=== PATIENT | female | born 1985 | race Caucasian/White ===

== ENCOUNTER 2020-06-14 21:49 | Emergency (ER) | payer SELFPAY ==
--- NOTE | 2020-06-15 01:25 | ER ---
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 Pain and swelling on R ca1 ankle. Pain on L knee. Coronavirus screen: Client denies travel out of the [place] in the last 14 days. At this time, the client does not indicate any symptoms associated with coronavirus-19. Ebola Screen: Patient negative for fever greater than or equal to 101.5 degrees Fahrenheit, and additional compatible Ebola Virus Disease symptoms Patient denies exposure to infectious person. Patient denies travel to an Ebola-affected area in the 21 days before illness onset. No symptoms or risks identified at this time. Initial Sepsis Screen: Does the patient meet any 2 criteria? No. Patient's initial sepsis screen is negative. Does the patient have a suspected source of infection? No. Patient's initial sepsis screen is negative. Risk Assessment: Do you want to hurt yourself or someone else? Patient reports no desire to harm self or others. Onset of symptoms was June 14, 2020. 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 - Social history:: Smoking status: Patient denies any tobacco usage or history of. Screenin:38 Abuse screen: Denies threats or abuse. Denies injuries from another. Nutritional zb screening: No deficits noted. Tuberculosis screening: No symptoms or risk factors identified. Fall Risk None identified. Assessment: 23:39 Reassessment: ECP at bedside. zb 23:42 General: Appears in no apparent distress. uncomfortable, Behavior is calm, cooperative, zb appropriate for age. Pain: Complains of pain in right foot and left knee Pain currently is 9 out of 10 on a pain scale. Quality of pain is described as tender, throbbing, Pain began 4 hours ago. Alleviated by nothing. Aggravated by increased activity, weight bearing, Noted to be grimacing. Neuro: Level of Consciousness is awake, alert, obeys commands, Oriented to person, place, time, situation. Cardiovascular: Patient's skin is warm and dry. Cardiovascular: Edema is 1+ to left foot and right foot. Respiratory: Airway is patent Respiratory effort is even, unlabored, Respiratory pattern is regular, symmetrical. GI: Abdomen is obese. Derm: Skin is intact, is healthy with good turgor, Skin is dry, Skin is normal, Skin temperature is warm Bruising that is bright red, on left knee. Musculoskeletal: Swelling present in right foot. 06/15 00:06 Reassessment: x-ray at bedside. zb Vital Signs: 06/14 22:05 BP 155 / 85; Pulse 92; Resp 16 S; Temp 97.2(TE); Pulse Ox 99% on R/A; Weight 156.49 kg ca1 (R); Height 5 ft. 3 in. (160.02 cm) (R); Pain 9/10; 22:05 Body Mass Index 61.11 (156.49 kg, 160.02 cm) ca1 ED Course: 21:58 Patient arrived in ED. am4 22:07 Triage completed. ca1 22:08 Arm band placed on right wrist. ca1 23:30 Mitesh Alexander PA is PHCP. jmm 23:30 Jet Staley MD is Attending Physician. jmm 23:37 Suzie Peralta, ETELVINA is Primary Nurse. zb 23:38 Patient has correct armband on for positive identification. Placed in gown. Bed in low zb position. Call light in reach. Pulse ox on. NIBP on. Door closed. Noise minimized. 06/15 00:50 Ankle Right 3 View XRAY In Process Unspecified. EDMS 00:55 Foot Right 3 View XRAY In Process Unspecified. EDMS 01:24 Tommy Kirkland MD is Referral Physician. jmm 02:02 3D boot applied to right foot. em 02:03 No provider procedures requiring assistance completed. Patient did not have IV access em during this emergency room visit. Administered Medications: No medications were administered Outcome: :24 Discharge ordered by MD. doan 02:03 Discharged to home via wheelchair. em 02:03 Condition: stable 02:03 Discharge instructions given to patient, Instructed on discharge instructions, follow up and referral plans. Demonstrated understanding of instructions, follow-up care. 02:03 Patient left the ED. em Signatures: Dispatcher [employer] Mitesh Lott PA PA jmm Munoz, Edgar RN Tanya Feldman RN Suzie Garcia RN RN zb Martinez, Ashley [facility]
--- NOTE | 2020-06-15 01:25 | EDPHYS ---
Physician Documentation [facility] Name: Gelacio Silva Age: 35 yrs Sex: Female : 1985 Arrival Date: 06/14/2020 Time: 21:58 Bed 26 Private MD: ED Physician Jet Staley HPI: 06/14 23:40 This 35 yrs old Female presents to ER via Ambulatory with complaints of Fall jmm Injury. 23:40 The patient presents with an injury, a penetrating injury. Onset: The symptoms/episode jmm began/occurred acutely, just prior to arrival. Modifying factors: The symptoms are alleviated by nothing. the symptoms are aggravated by weight bearing. Associated signs and symptoms: Pertinent negatives head injury. This is a 35 year old female with no chronic medical conditions that presents to the ED with complaints of mainly right fot and ankle pain. patient states she tripped on cement and fell. Denies hitting her head. Abrasions noted to the left knee as well. 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 - Social history:: Smoking status: Patient denies any tobacco usage or history of. ROS: 23:40 Constitutional: Negative for fever, chills, and weight loss, Cardiovascular: Negative jmm for chest pain, palpitations, and edema, Respiratory: Negative for shortness of breath, cough, wheezing, and pleuritic chest pain. 23:40 MS/extremity: Positive for injury or acute deformity, pain. 23:40 All other systems are negative. Exam: 23:40 Constitutional: This is a well developed, well nourished patient who is awake, alert, jmm and in no acute distress. Head/Face: atraumatic. Eyes: EOMI, no conjunctival erythema appreciated ENT: Moist Mucus Membranes Neck: Trachea midline, Supple Chest/axilla: Normal chest wall appearance and motion. Cardiovascular: Regular rate and rhythm. No edema appreciated Respiratory: Normal respirations, no respiratory distress appreciated Abdomen/GI: Non distended, soft Back: Normal ROM Skin: General appearance color normal 23:40 Musculoskeletal/extremity: right foot ttp at the dorsum, compartments are soft, NVI. 23:40 Skin: Appearance: Color: normal in color. 23:40 Neuro: Orientation: is normal, Mentation: is normal, Memory: is normal. 23:40 Psych: Behavior/mood is pleasant, cooperative. Vital Signs: 22:05 BP 155 / 85; Pulse 92; Resp 16 S; Temp 97.2(TE); Pulse Ox 99% on R/A; Weight 156.49 kg ca1 (R); Height 5 ft. 3 in. (160.02 cm) (R); Pain 9/10; 22:05 Body Mass Index 61.11 (156.49 kg, 160.02 cm) ca1 MDM: 23:40 Patient medically screened. [facility] 06/15 01:23 Data reviewed: vital signs, nurses notes. Counseling: I had a detailed discussion with franki the patient and/or guardian regarding: the historical points, exam findings, and any diagnostic results supporting the discharge/admit diagnosis, radiology results, the need for outpatient follow up, to return to the emergency department if symptoms worsen or persist or if there are any questions or concerns that arise at home. ED course: Patient advised to follow up with ortho for further evaluation. patient understood and agrees with the plan of care. . 04 23:40 Order name: Foot Right 3 View XRAY [facility] 06/14 23:40 Order name: Ankle Right 3 View XRAY [facility] 06/15 01:21 Order name: Misc. Order: orthoboot; Complete Time: 02:02 [facility] Administered Medications: No medications were administered Disposition: 08:20 Co-signature as Attending Physician, Jet Staley MD. dixie Disposition: 06/15/20 01:24 Discharged to Home. Impression: Unspecified sprain of right foot. - Condition is Stable. - Discharge Instructions: Foot Sprain. - Medication Reconciliation Form, Thank You Letter, Antibiotic Education, Prescription Opioid Use, Work release form form. - Follow up: Tommy Kirkland MD; When: 2 - 3 days; Reason: Recheck today's complaints, Continuance of care, Re-evaluation by your physician. Signatures: Dispatcher [employer] Jet Medina MD MD pkl Mickail, Joel, PA PA jmm Munoz, Edgar RN Tanya Feldman RN RN [facility] Corrections: (The following items were deleted from the chart) 02:03 01:24 06/15/2020 01:24 Discharged to Home. Impression: Unspecified sprain of right em foot. Condition is Stable. Forms are Medication Reconciliation Form, Thank You Letter, Antibiotic Education, Prescription Opioid Use. Follow up: Tommy Kirkland; When: 2 - 3 days; Reason: Recheck today's complaints, Continuance of care, Re-evaluation by your physician. franki
--- NOTE | 2020-06-15 10:53 | RAD REPORT ---
EXAM DESCRIPTION: RAD - Ankle Right 3 View - 06/15/2020 12:50 am CLINICAL HISTORY: Fall. COMPARISON: None. TECHNIQUE: Three views of the right ankle were obtained: AP, oblique, and lateral radiographs. FINDINGS: No acute osseous abnormality. No ankle mortise widening. The talar dome appears intact. Mi ld soft tissue swelling about the ankle. IMPRESSION: No acute osseous abnormality. Due to temporary technical issues with the PACS/Fluency reporting system, reports are being signed by the in house radiologist without review as a courtesy to ensure prompt reporting. The interpreting r adiologist is fully responsible for the content of the report.
--- NOTE | 2020-06-15 10:56 | RAD REPORT ---
EXAM DESCRIPTION: RAD - Foot Right 3 View - 06/15/2020 12:55 am CLINICAL HISTORY: Fall , pain and swelling, trip and fall COMPARISON: None. TECHNIQUE: Right foot 3 views FINDINGS: No fracture or dislocation. No significant sclerotic/lytic bone lesion. Joint spaces unremarkable. Mild soft tissue swelling along dorsal aspect of proximal right foot. IMPRESSION: No right foot fracture. Electronically signed by: Willie Levi MD 06/15/2020 1:12 AM CDT Due to temporary technical issues with the PACS/Fluency reporting system, reports are being signed by the in house radiologist without review as a courtesy to ensure prompt reporting. The interpreting r adiologist is fully responsible for the content of the report.
[2020-06-15 16:59] VITALS: BP 155/85; TEMP 97.2; O2SAT 99
== END 2020-06-15 02:03 | disposition home or self-care (01) ==
LOC: ER 21:49
DX: S93.601A Unspecified sprain of right foot, initial encounter (principal); W01.0XXA Fall on same level from slipping, tripping and stumbling without subsequent striking against object, initial encounter; Y93.01 Activity, walking, marching and hiking; Y92.9 Unspecified place or not applicable
CPT/HCPCS: 99283

== ENCOUNTER 2021-05-04 00:25 | Emergency (ER) | payer SELFPAY ==
[2021-05-04 01:24] LABS: Absolute Lymphocytes (CBC) 2.9 K/uL (0.7-4.9); Hematocrit 37.8 % (36.0-45.0); MPV 7.2 fL (7.6-11.3)
[2021-05-04 01:27] LABS: Protime INR 1.01
[2021-05-04 01:43] LABS: Urine Blood 2+ (Negative); Urine Glucose Negative (Negative); Urine Protein Negative (Negative); Urine Specific Gravity 1.025 (1.005-1.030)
[2021-05-04 02:03] LABS: Urine Specific Gravity/Preg 1.025 (1.005-1.030)
[2021-05-04 02:11] LABS: Urine Amorphous Sediment 3+ /HPF (NONE SEEN); Urine Bacteria >50 /HPF (<20); Urine Mucus 2+ /HPF (NONE SEEN)
[2021-05-04] MEDS ORDERED: NA CHLORIDE 0.9% 1,000 ML ONE (02:13)
[2021-05-04] MEDS ORDERED: KETOROLAC 30 MG/ML INJ ONE (02:13)
[2021-05-04] MEDS ORDERED: HYDROCODONE/APAP 10/325 TAB ONE (03:31)
--- NOTE | 2021-05-04 03:58 | EDPHYS ---
Physician Documentation [facility] Name: Gelacio Silva Age: 36 yrs Sex: Female : 1985 Arrival Date: 05/04/2021 Time: 00:26 Bed 5 Private MD: ED Physician Artemio Barber HPI: 05/04 01:55 This 36 yrs old Female presents to ER via Ambulatory with complaints of Vaginal cp Bleeding, VAGINAL BLOOD CLOTS. 01:55 The patient presents with vaginal bleeding that is heavy, with clots. Onset: The cp symptoms/episode began/occurred gradually, yesterday, about 1600. Associated signs and symptoms: Pertinent positives: dizziness, Pertinent negatives: dysuria, fever. Severity of symptoms: in the emergency department the symptoms are unchanged, despite home interventions. Patient reports LMP end of January to early February. Patient reports history of PCOS, irregular menses in the past. Not currently taking and control. IMPRESS ASSOCIATE: 00:57 LMP N/A - Irregular menses vc1 Historical: - Allergies: 00:51 Paper tape; vc1 00:55 Surgical Steel; vc1 - Home Meds: 00:51 Lamictal 200 mg Oral tab 1 tab 2 times per day [Active]; BuSpar 30 mg Oral tab 1 tab 2 vc1 times per day [Active]; Prozac 20 mg Oral cap 1 cap once daily [Active]; - PMHx: 00:51 Anxiety; Bipolar disorder; PTSD; Endometriosis of vagina; PCOS; Irritable bowel vc1 syndrome; Hypertensive disorder; GERD; Arthritis; Degenerative disc; Scoliosis; Enclosing Spondylosis; - PSHx: 00:55 Back Surgery; vc1 00:56 Cholecystectomy; vc1 - Immunization history:: Adult Immunizations up to date, Client reports receiving the 2nd dose of the Covid vaccine, Flu vaccine is not up to date. - Social history:: Smoking status: Patient/guardian denies using tobacco, the patient reports quitting approximately 2010 years ago. ROS: 02:00 Constitutional: Negative for body aches, chills, fever, poor PO intake. cp 02:00 Abdomen/GI: Positive for abdominal cramps, of the right lower quadrant and left lower cp quadrant, Negative for nausea, vomiting, and diarrhea. 02:00 Eyes: Negative for injury, pain, redness, and discharge. cp 02:00 ENT: Negative for ear pain, sore throat, difficulty swallowing, difficulty handling secretions. 02:00 Cardiovascular: Negative for chest pain. 02:00 Respiratory: Negative for cough, shortness of breath, wheezing. 02:00 Neuro: Positive for dizziness, Negative for altered mental status, loss of consciousness, numbness, syncope, weakness. 02:00 All other systems are negative. Exam: 02:05 Constitutional: The patient appears in no acute distress, alert, awake, non-toxic, well cp developed, well nourished. 02:05 Head/Face: Normocephalic, atraumatic. cp 02:05 Eyes: Periorbital structures: appear normal, Conjunctiva: normal, no exudate, no injection, Sclera: no appreciated abnormality, Lids and lashes: appear normal, bilaterally. 02:05 ENT: External ear(s): are unremarkable, Nose: is normal, Mouth: Lips: moist, Oral mucosa: moist, Posterior pharynx: Airway: no evidence of obstruction, patent. 02:05 Neck: ROM/movement: is normal, is supple, without pain, no range of motions limitations. 02:05 Chest/axilla: Inspection: normal. 02:05 Cardiovascular: Rate: normal, Rhythm: regular. 02:05 Respiratory: the patient does not display signs of respiratory distress, Respirations: normal, no use of accessory muscles, no retractions, labored breathing, is not present, Breath sounds: are clear throughout, no decreased breath sounds, no stridor, no wheezing. 02:05 Abdomen/GI: Inspection: obese Bowel sounds: active, all quadrants, Palpation: soft, in all quadrants, mild abdominal tenderness, in the right lower quadrant and left lower quadrant, rebound tenderness, is not appreciated, involuntary guarding, is not appreciated. 02:05 : Pelvic Exam: Speculum exam: moderate bleeding, blood clots in vaginal vault, os that is closed, no tissue in cervix is seen, no tissue in vagina is seen, the nurse was present for the exam. Vital Signs: 00:45 BP 178 / 108; Pulse 93; Resp 18; Temp 97.8; Pulse Ox 99% ; Weight 145.15 kg; Height 5 vc1 ft. 3 in. (160.02 cm); Pain 4/10; 01:04 BP 166 / 104 Supine; Pulse 92; Pulse Ox 100% on R/A; tw5 01:04 BP 186 / 119 Sitting; Pulse 89; Resp 18; Pulse Ox 99% ; tw5 01:04 BP 194 / 118 Standing; Pulse 102; Resp 20; Pulse Ox 100% on R/A; tw5 01:47 BP 173 / 95; Pulse 81; Resp 16; Pulse Ox 99% on R/A; tw5 02:40 BP 161 / 107; Pulse 82; Resp 16; Pulse Ox 100% on R/A; Pain 3/10; dolores 02:40 Pain 3/10; dolores 03:18 BP 163 / 102; Pulse 82; Resp 16; Pulse Ox 98% on R/A; Pain 2/10; dolores 00:45 Body Mass Index 56.68 (145.15 kg, 160.02 cm) vc1 MDM: 01:12 Patient medically screened. cp 02:00 Differential diagnosis: endometriosis, uterine fibroids, urinary tract infection, cp vaginosis, anemia. 03:56 Data reviewed: vital signs, nurses notes, lab test result(s), radiologic studies, rn ultrasound, and as a result, I will discharge patient. Counseling: I had a detailed discussion with the patient and/or guardian regarding: the historical points, exam findings, and any diagnostic results supporting the discharge/admit diagnosis, lab results, radiology results, the need for outpatient follow up, to return to the emergency department if symptoms worsen or persist or if there are any questions or concerns that arise at home. Special discussion: I discussed with the patient/guardian in detail that at this point there is no indication for admission to the hospital. It is understood, however, that if the symptoms persist or worsen the patient needs to return immediately for re-evaluation. Based on the history and exam findings, there is no indication for further emergent testing or inpatient evaluation. I discussed with the patient/guardian the need to see the OB Gyne specialist for further evaluation of the symptoms. 05/04 01: Order name: Basic Metabolic Panel; Complete Time: :48 cp 05/04 01:01 Order name: CBC with Diff; Complete Time: :48 cp 05/04 01:02 Order name: PT-INR; Complete Time: :48 cp 05/04 01:02 Order name: Ptt, Activated; Complete Time: :48 cp 05/04 01:02 Order name: Urine Microscopic Only; Complete Time: 03:26 cp 05/04 01:43 Order name: Urine Dipstick-Ancillary; Complete Time: 01:48 EDMS 05/04 01:01 Order name: IV Saline Lock; Complete Time: 01:32 cp 05/04 01:01 Order name: Labs collected and sent; Complete Time: 01:44 cp 05/04 01:44 Order name: Urine --Ancillary (enter results); Complete Time: 03:26 as6 05/04 01:50 Order name: Transvaginal Study (probe) cp 05/04 02:12 Order name: Urine Culture EDMS 05/04 01:01 Order name: NPO; Complete Time: 01:09 cp 05/04 01:01 Order name: Urine Dipstick-Ancillary (obtain specimen); Complete Time: 01:44 cp 05/04 01:01 Order name: Urine Test (obtain specimen); Complete Time: 01:44 cp 05/04 01:01 Order name: Orthostatics; Complete Time: 01:09 cp 05/04 01:02 Order name: Cath; Complete Time: 01:32 cp Administered Medications: 02:14 Drug: Ketorolac 30 mg Route: IVP; Site: right antecubital; dolores 02:40 Follow up: Pain 3/10 Adult; Response: Pain is decreased dolores 02:39 Drug: NS 0.9% 1000 ml Route: IV; Rate: 1 bolus; Site: right antecubital; as6 04:17 Follow up: Response: No adverse reaction; IV Status: Completed infusion; IV Intake: as6 1000ml 04:02 Not Given (Patient Refused): Warden (HYDROcodone-acetaminophen) 10 mg-325 mg 1 tabs PO dolores once; RASS on ADMIN: Combtv4, Very Agttd3, Agttd2, Rstlss1, AlertClm0, Drwsy-1, Lt Sdtn-2, Mod Sdtn-3, Dp Sdtn-4, UnArsble-5 Disposition: 05:16 Co-signature as Attending Physician, Artemio Barber MD I agree with the assessment and rn plan of care. Attestation: The patient's history, exam findings, diagnostics, and a summary of any interventions or procedures was reviewed in detail with Juan JIMENEZ. Disposition Summary: 05/04/21 03:57 Discharge Ordered Location: Home rn Problem: new rn Symptoms: have improved rn Condition: Stable rn Diagnosis - Abnormal uterine and vaginal bleeding, unspecified rn Followup: cp - With: - When: 1 week - Reason: Recheck today's complaints Discharge Instructions: - Discharge Summary Sheet cp - Abnormal Uterine Bleeding cp Forms: - Medication Reconciliation Form rn - Thank You Letter rn - Antibiotic cook morning - Prescription Opioid Use rn Prescriptions: - medroxyprogesterone 10 mg Oral tablet - take 1 tablet by ORAL route once daily for 10 days for 10 days; 10 tablet; cp Refills: 0, Product Selection Permitted Signatures: Dispatcher [employer] EDMS Artemio Barber MD MD rn Page, Corey, PA PA cp Guido Chapman RN RN as6 Venus Beard RN RN Yanna Charles, RN RN vc1
--- NOTE | 2021-05-04 03:58 | ER ---
Nurse's Notes [facility] Name: Gelacio Silva Age: 36 yrs Sex: Female : 1985 Arrival Date: 05/04/2021 Time: 00:26 Bed 5 Private MD: Diagnosis: Abnormal uterine and vaginal bleeding, unspecified Presentation: 05/04 00:45 Chief complaint: Patient states: I have gone through 10 large pads in the last four vc1 hours. I am passing giants clumps of clots. Coronavirus screen: Vaccine status: Patient reports receiving the 2nd dose of the covid vaccine. Moderna At this time, the client does not indicate any symptoms associated with coronavirus-19. Ebola Screen: No symptoms or risks identified at this time. Initial Sepsis Screen: Does the patient meet any 2 criteria? HR > 90 bpm. No. Patient's initial sepsis screen is negative. Does the patient have a suspected source of infection? No. Patient's initial sepsis screen is negative. Risk Assessment: Do you want to hurt yourself or someone else? Patient reports no desire to harm self or others. Onset of symptoms was May 03, 2021. 00:45 Method Of Arrival: Ambulatory vc1 00:45 Acuity: NASIR 3 vc1 Triage Assessment: 00:57 General: Appears in no apparent distress. uncomfortable, Behavior is calm, cooperative, vc1 appropriate for age. Pain: Complains of pain in abdomen. : Reports vaginal bleeding that is bright red, with clots, heavy flow. 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 N/A - Irregular menses vc1 Historical: - Allergies: 00:51 Paper tape; vc1 00:55 Surgical Steel; vc1 - Home Meds: 00:51 Lamictal 200 mg Oral tab 1 tab 2 times per day [Active]; BuSpar 30 mg Oral tab 1 tab 2 vc1 times per day [Active]; Prozac 20 mg Oral cap 1 cap once daily [Active]; - PMHx: 00:51 Anxiety; Bipolar disorder; PTSD; Endometriosis of vagina; PCOS; Irritable bowel vc1 syndrome; Hypertensive disorder; GERD; Arthritis; Degenerative disc; Scoliosis; Enclosing Spondylosis; - PSHx: 00:55 Back Surgery; vc1 00:56 Cholecystectomy; vc1 - Immunization history:: Adult Immunizations up to date, Client reports receiving the 2nd dose of the Covid vaccine, Flu vaccine is not up to date. - Social history:: Smoking status: Patient/guardian denies using tobacco, the patient reports quitting approximately 2010 years ago. Screenin:58 Abuse screen: Denies threats or abuse. Nutritional screening: No deficits noted. vc1 Tuberculosis screening: No symptoms or risk factors identified. Fall Risk None identified. Assessment: 01:01 General: Reports "I was bleeding all over the floor. It looked like something from tw5 forensics.". Pain: Pain currently is 4 out of 10 on a pain scale. Quality of pain is described as crampy. Neuro: Level of Consciousness is awake, alert, obeys commands. Respiratory: Airway is patent Trachea midline Respiratory effort is even, unlabored. : Reports cramping, lower back vaginal bleeding that is with clots, heavy flow "Dark, Dark red, huge clumps, like bowel movement size clumps.". Derm: Skin is intact, is healthy with good turgor. 01:32 : bloody. tw5 02:09 General: Active Circle tech is at bedside performing the study. The pt is tolerating it very well. dolores She is pleasant and talkative. . 04:02 General: Although the pt called me into the room and c/o pain 08/17, she refused the dolores Glide when I brought it to her. informed. She has been dc'd, but environmental services are completing the floors and we can not retrieve them. . Vital Signs: 00:45 BP 178 / 108; Pulse 93; Resp 18; Temp 97.8; Pulse Ox 99% ; Weight 145.15 kg; Height 5 vc1 ft. 3 in. (160.02 cm); Pain 410; 01:04 BP 166 / 104 Supine; Pulse 92; Pulse Ox 100% on R/A; tw5 01:04 BP 186 / 119 Sitting; Pulse 89; Resp 18; Pulse Ox 99% ; tw5 01:04 BP 194 / 118 Standing; Pulse 102; Resp 20; Pulse Ox 100% on R/A; tw5 01:47 BP 173 / 95; Pulse 81; Resp 16; Pulse Ox 99% on R/A; tw5 02:40 BP 161 / 107; Pulse 82; Resp 16; Pulse Ox 100% on R/A; Pain 3/10; dolores 02:40 Pain 3/10; dolores 03:18 BP 163 / 102; Pulse 82; Resp 16; Pulse Ox 98% on R/A; Pain 2/10; dolores 00:45 Body Mass Index 56.68 (145.15 kg, 160.02 cm) vc1 ED Course: 00:26 Patient arrived in ED. ja2 00:51 Triage completed. vc1 00:57 Arm band placed on right wrist. vc1 00:58 Patient has correct armband on for positive identification. vc1 01:00 Juan Reyna PA is PHCP. cp 01:00 Artemio Barber MD is Attending Physician. cp 01:00 Mirela Rivas is Primary Nurse. tw5 01:01 Pulse ox on. NIBP on. Door closed. Noise minimized. Moved to private room. Warm blanket tw5 given. Verbal reassurance given. 01:32 Initial lab(s) drawn, by ED staff, sent to lab. Urine collected: straight cath tw5 specimen, cloudy, Amount Returned: 100mL. Inserted saline lock: 20 gauge in right antecubital area, using aseptic technique. Blood collected. 01:48 Assist provider with pelvic exam: Set up pelvic tray. Performed by Juan bernal Patient tolerated well. 02:33 Transvaginal Study (probe) In Process Unspecified. EDMS 03:57 Lanre Ward MD is Referral Physician. rn 04:17 IV discontinued, intact, bleeding controlled, No redness/swelling at site. Pressure as6 dressing applied. Administered Medications: 02:14 Drug: Ketorolac 30 mg Route: IVP; Site: right antecubital; dolores 02:40 Follow up: Pain 3/10 Adult; Response: Pain is decreased dolores 02:39 Drug: NS 0.9% 1000 ml Route: IV; Rate: 1 bolus; Site: right antecubital; as6 04:17 Follow up: Response: No adverse reaction; IV Status: Completed infusion; IV Intake: as6 1000ml 04:02 Not Given (Patient Refused): Glide (HYDROcodone-acetaminophen) 10 mg-325 mg 1 tabs PO dolores once; RASS on ADMIN: Combtv4, Very Agttd3, Agttd2, Rstlss1, AlertClm0, Drwsy-1, Lt Sdtn-2, Mod Sdtn-3, Dp Sdtn-4, UnArsble-5 Intake: 04:17 IV: 1000ml; Total: 1000ml. as6 Outcome: 01:49 Condition: stable dolores 03:57 Discharge ordered by . rn 04:17 Discharged to home ambulatory. as6 04:17 Discharge instructions given to patient, Instructed on discharge instructions, follow up and referral plans. medication usage, Demonstrated understanding of instructions, follow-up care, medications, Prescriptions given X 1. 04:17 Patient left the ED. as6 Signatures: Dispatcher [employer] EDMS Artemio Barber MD MD rn Juan Reyna PA PA cp Alexander, Jessica ja2 Wood, Tiffany tw5 Guido Chapman RN RN as6 Venus Beard, RN Yanna Carr, RN RN vc1
[2021-05-04 04:29] VITALS: TEMP 97.8
[2021-05-04 04:36] VITALS: BP 163/102; O2SAT 98
--- NOTE | 2021-05-04 11:30 | RAD REPORT ---
EXAM DESCRIPTION: US - Transvaginal Study Probe - 05/04/2021 3:10 am CLINICAL HISTORY: The patient is 36 years old and is Female; VAGINAL BLEEDING TECHNIQUE: Real-time transvaginal pelvic ultrasound with image documentation. Transvaginal imaging was used for better evaluation of the endometrium and adnexa. COMPARISON: No relevant prior studies available. FINDINGS: UTERUS/CERVIX: The uterus measures 8.3 x 4.7 x 4.6 cm. The endometrium is thickened perez uring 1.4 cm. Several nabothian cysts are present. No myometrial mass. RIGHT OVARY: The right ovary measures 3.9 x 2.8 x 3.8 cm. Normal arterial and venous color Doppl er and spectral waveform is present. Normal blood flow. LEFT OVARY: The left ovary measures 2.5 x 1.1 x 1.9 cm. Normal arterial and venous color Doppler and spectral waveform is present. Normal blood flow. FREE FLUID: No free fluid. BLADDER: Empty bladder which cannot be evaluated with this probe. IMPRESSION: Thickened endometrium which may be secondary to the phase of menstrual cycle. Electronically signed by: Isabel Pan MD 05/04/2021 3:02 AM [employer]ITCH[employer] BREAKER Due to temporary technical issues with the PACS/Fluency reporting system, reports are being signed by the in house radiologist without review as a courtesy to ensure prompt reporting. The interpreting r adiologist is fully responsible for the content of the report.
== END 2021-05-04 04:17 | disposition home or self-care (01) ==
LOC: ER 00:25
DX: N93.9 Abnormal uterine and vaginal bleeding, unspecified (principal); F31.9 Bipolar disorder, unspecified; I10 Essential (primary) hypertension; Z91.048 Other nonmedicinal substance allergy status
CPT/HCPCS: 36415; 76830; 80048; 81003; 81015; 81025; 85025; 85610; 85730; 87086; 87088; 96361; 96374; 99284; J7030

== ENCOUNTER 2021-08-20 00:34 | Emergency (ER) | payer SELFPAY ==
--- NOTE | 2021-08-20 02:12 | ER ---
Nurse's Notes [facility] Name: Gelacio Silva Age: 36 yrs Sex: Female : 1985 Arrival Date: 08/20/2021 Time: 00:38 Bed 11 Private MD: Diagnosis: Presentation: 08/20 00:55 Chief complaint: Patient states: Something bit/ or stung me on the left foot, I noticed jb4 my foot swelling and itching. I took 2 Benadryl about 45minutes to and hour ago. Coronavirus screen: At this time, the client does not indicate any symptoms associated with coronavirus-19. Ebola Screen: No symptoms or risks identified at this time. Onset of symptoms was August 20, 2021. 00:55 Method Of Arrival: Ambulatory jb4 00:55 Acuity: NASIR 4 jb4 00:56 Transition of care: patient was not received from another setting of care. jb4 00:57 Initial Sepsis Screen: Does the patient meet any 2 criteria? No. Patient's initial jb4 sepsis screen is negative. Does the patient have a suspected source of infection? No. Patient's initial sepsis screen is negative. Risk Assessment: Do you want to hurt yourself or someone else? Patient reports no desire to harm self or others. Triage Assessment: 00:57 Bite description: bite sustained to dorsum of left foot is from insect was sustained jb4 1-2 hours ago. by animal information: vaccination(s) is not applicable. General: Appears in no apparent distress. comfortable, Behavior is calm, cooperative. Pain: Complains of pain in dorsum of left foot Pain does not radiate. Pain currently is 3 out of 10 on a pain scale. Neuro: Level of Consciousness is awake, alert, obeys commands, Oriented to person, place, time, situation. Cardiovascular: Patient's skin is warm and dry. Respiratory: Airway is patent Respiratory effort is even, unlabored, Respiratory pattern is regular, symmetrical. Derm: Skin is intact, Skin is pink, warm \T\ dry. Musculoskeletal: Circulation, motion, and sensation intact. Range of motion: intact in all extremities. Historical: - Allergies: 00:57 paper tape; jb4 00:57 surgical steel; jb4 - Home Meds: 00:57 BuSpar 30 mg Oral tab 1 tab 2 times per day [Active]; Lamictal 200 mg Oral tab 1 tab 2 jb4 times per day [Active]; Prozac 20 mg Oral cap 1 cap once daily [Active]; duloxetine oral [Active]; - PMHx: 00:57 Anxiety; Arthritis; Bipolar disorder; degenerative disc; Enclosing Spondylosis; jb4 Endometriosis of vagina; GERD; Hypertensive disorder; Irritable bowel syndrome; PCOS; PTSD; scoliosis; - PSHx: 00:57 back surgery; Cholecystectomy; jb4 - Immunization history:: Adult Immunizations up to date. - Social history:: Smoking status: Patient denies any tobacco usage or history of. Assessment: 02:10 Reassessment: pt states she is feeling better and does not want to be seen now will bb come back if symptoms worsen pt left the ED. Vital Signs: 00:57 BP 177 / 106; Pulse 78; Resp 16; Temp 98.3(O); Pulse Ox 98% on R/A; Weight 149.69 kg jb4 (R); Height 5 ft. 3 in. (160.02 cm) (R); Pain 3/10; 00:57 Body Mass Index 58.46 (149.69 kg, 160.02 cm) jb4 ED Course: 00:38 Patient arrived in ED. bp1 00:56 Triage completed. jb4 00:57 Arm band placed on right wrist. jb4 01:13 Tristin Gaspar MD is Attending Physician. mh7 Administered Medications: No medications were administered Outcome: 02:11 Patient left the ED. bb Signatures: Venus Anderson RN RN bb Ming King RN RN jb4 Ashley Mena [facility] Tristin Gaspar MD MD mh7
[2021-08-20 02:15] VITALS: BP 177/106; TEMP 98.3; O2SAT 98
== END 2021-08-20 02:11 | disposition left against medical advice (07) ==
LOC: ER 00:34
DX: S90.862A Insect bite (nonvenomous), left foot, initial encounter (principal); Z53.21 Procedure and treatment not carried out due to patient leaving prior to being seen by health care provider; I10 Essential (primary) hypertension; F41.9 Anxiety disorder, unspecified; F43.10 Post-traumatic stress disorder, unspecified; F31.9 Bipolar disorder, unspecified
CPT/HCPCS: 99281